=== PATIENT | female | born 1965 | race Caucasian/White ===

== ENCOUNTER 2019-08-20 04:25 | Emergency (ER) | payer OTHER ==
[2019-08-20 04:34] VITALS: BP 112/88; PULSE 83
--- NOTE | 2019-08-20 04:40 | EDM.PDOC ---
ED HPI GENERAL MEDICAL PROBLEM - General Chief Complaint: Back Pain or Injury Stated Complaint: MIDDLE BACK PAIN/SOB Time Seen by Provider: 08/20/19 04:40 - History of Present Illness INITIAL COMMENTS - FREE TEXT/NARRATIVE: 54-year-old female presents emergency room with upper back discomfort and difficulty breathing. This started around 1 or 2:00 yesterday afternoon. She cannot take a deep breath in because it feels like it catches or hurts. She's had what she describes as lower leg swelling where she thought she was retaining water. The pain is somewhat sharp and pleuritic when she attempts to take a deep breath. She has not had pressure with this. She had no prior history of blood clots no family history of blood clots she has no history of coronary artery disease. She is a nonsmoker. Middle Back Pain Score (Numeric/FACES): 8 - Related Data Allergies Allergy/AdvReac Type Severity Reaction Status Date / Time azithromycin [From Zithromax] Allergy Other Verified 08/20/19 04:34 erythromycin base Allergy Other Verified 08/20/19 04:34 gentamicin Allergy Other Verified 08/20/19 04:34 peanut Allergy Other Verified 08/20/19 04:34 Tetracyclines Allergy Other Verified 08/20/19 04:34 Home Meds: Home Meds Aspirin [Ecotrin EC] 81 mg PO DAILY 11/01/16 [History] Cholecalciferol (Vitamin D3) [Vitamin D] 2,000 unit PO DAILY 11/01/16 [History] Escitalopram [Lexapro] 15 mg PO DAILY 11/01/16 [History] Esomeprazole [NexIUM] 40 mg PO DAILY 11/01/16 [History] Melatonin 5 mg PO BEDTIME 11/01/16 [History] Budesonide/Formoterol Fumarate [Symbicort 80-4.5 MCG] 2 inh INH BID 08/20/19 [ History] Magnesium Amino Acid Chelate [Magnesium] 200 mg PO DAILY 08/20/19 [History] Naproxen [Naprosyn] 500 mg PO Q12HR #20 tab 08/20/19 [Rx] Past Medical History HEENT History: Reports: Other (See Below) Other HEENT History: TMJ Respiratory History: Reports: Asthma Gastrointestinal History: Reports: Hiatal Hernia Genitourinary History: Reports: Renal Calculus, UTI, Recurrent, Other (See Below ) Other Genitourinary History: HPV Musculoskeletal History: Reports: Other (See Below) Other Musculoskeletal History: low back surgery Psychiatric History: Reports: Depression Social & Family History - Caffeine Use Caffeine Use: Reports: Soda, Tea ED ROS GENERAL - Review of Systems Review Of Systems: Unable To Obtain HEENT: Reports: No Symptoms Respiratory: Reports: Shortness of Breath. Denies: Cough, Sputum, Hemoptysis Cardiovascular: Denies: No Symptoms, Chest Pain, Blood Pressure Problem, Dyspnea on Exertion, Lightheadedness, Orthopnea, Palpitations, Syncope Endocrine: Reports: No Symptoms GI/Abdominal: Reports: No Symptoms : Reports: No Symptoms Musculoskeletal: Reports: No Symptoms Skin: Reports: No Symptoms Neurological: Reports: No Symptoms ED EXAM, GENERAL - Physical Exam Exam: See Below Exam Limited By: No Limitations General Appearance: Alert, No Apparent Distress Head: Atraumatic, Normocephalic Neck: Normal Inspection, Supple, Non-Tender, Full Range of Motion. No: Lymphadenopathy (L), Lymphadenopathy (R) Respiratory/Chest: No Respiratory Distress, Lungs Clear, Normal Breath Sounds Cardiovascular: Regular Rate, Rhythm, No Edema, No Murmur GI/Abdominal: Normal Bowel Sounds, Soft, Non-Tender Back Exam: Normal Inspection, Other (She has tenderness just to the right side of her vertebrae in the mid thoracic area mild palpation does cause some moderate increase in the discomfort) EKG INTERPRETATION EKG Date: 08/20/19 Rhythm: NSR [place]: Normal P-Wave: Present QRS: Normal ST-T: Normal QT: Normal Comparison: NA - No Prior EKG EKG Interpretation Comments: Normal EKG Course - Vital Signs Last Recorded V/S: Last Vital Signs Temp 36.2 C 08/20/19 04:31 Pulse 83 08/20/19 04:31 Resp 16 08/20/19 04:31 BP 112/88 08/20/19 04:31 Pulse Ox 99 08/20/19 04:31 - Orders/Labs/Meds Orders: Active Orders 24 hr Category Date Time Status EKG Documentation Completion [RC] STAT Care 08/20/19 04:49 Active Chest 2V [CR] Stat Exams 08/20/19 04:49 Ordered Labs: Laboratory Tests 08/20/19 Range/Units 05:16 D-Dimer, Quantitative 0.30 (0.19-0.50) mg/L - Re-Assessments/Exams Free Text/Narrative Re-Assessment/Exam: 08/20/19 05:57 S x-ray is unremarkable EKG is unremarkable and her d-dimer is negative. I discussed this with the patient she would like to be discharged offered to give her a shot of Toradol but she would rather just take orals. We will give her a dose of Naprosyn now and a prescription for Naprosyn. I've advised her that if she is not having improvement with therapy she is to follow-up with her regular doctor on Thursday or Thursday and get this d-dimer rechecked. Departure - Departure Time of Disposition: 05:58 Disposition: Home, Self-Care 01 Clinical Impression: Pleuritic pain - Discharge Information Prescriptions: Naproxen [Naprosyn] 500 mg PO Q12HR #20 tab Referrals: Lisa Saldana MD [Primary Care Provider] - Forms: ED Department Discharge Additional Instructions: Return to the emergency room with any questions problems or worsening symptoms. Follow-up with your regular physician on Thursday or Thursday if not improving. Take the Naprosyn as directed use as needed take with meals. - My Orders Last 24 Hours: My Active Orders 08/20/19 04:49 EKG Documentation Completion [RC] STAT Chest 2V [CR] Stat - Assessment/Plan Last 24 Hours: My Active Orders 08/20/19 04:49 EKG Documentation Completion [RC] STAT Chest 2V [CR] Stat
[2019-08-20] MEDS ORDERED: Naproxen 500 MG Tab PO ONE (05:53)
--- NOTE | 2019-08-20 08:20 | CR ---
Chest: 2 views of the chest were obtained. Comparison: Prior chest x-ray of 11/01/16. Moderate-sized hiatal hernia is noted. Heart size and mediastinum are within normal limits. Lungs are clear with no acute parenchymal change but lungs are hyperinflated. Bony structures show scoliosis within the spine. Impression: 1. Probable emphysematous change. Please correlate if patient is a smoker. 2. Moderate-sized hiatal hernia. 3. Nothing acute is otherwise seen. Diagnostic code #2
== END 2019-08-20 06:15 | disposition home or self-care (01) ==
LOC: JD.ED 04:25
DX: R07.81 Pleurodynia (principal); J45.909 Unspecified asthma, uncomplicated; F32.9 Major depressive disorder, single episode, unspecified; Z88.1 Allergy status to other antibiotic agents; Z91.010 Allergy to peanuts; Z79.82 Long term (current) use of aspirin; Z79.51 Long term (current) use of inhaled steroids; Z79.899 Other long term (current) drug therapy
CPT/HCPCS: 36415; 71046; 85379; 93005; 99283; A9270

== ENCOUNTER 2021-05-23 23:00 | Emergency (ER) | payer OTHER ==
[2021-05-23 23:11] VITALS: BP 133/82; PULSE 59
--- NOTE | 2021-05-23 23:15 | EDM.PDOC ---
ED HPI GENERAL MEDICAL PROBLEM - General Chief Complaint: Neuro Symptoms/Deficits Stated Complaint: DIZZY/UNABLE TO STAND Time Seen by Provider: 05/23/21 23:14 Source of Information: Reports: Patient History Limitations: Reports: No Limitations - History of Present Illness INITIAL COMMENTS - FREE TEXT/NARRATIVE: 56-year-old female presents to the ED with a 3 to 4-day history of vertigo symptoms which have been fairly mild up until this evening. This evening the vertigo became severe to the point of making her have nausea and vomiting and inability to walk. She required 2 person assist to walk. She has had vertigo symptoms off and on for many years. He used to be associated with onset of menses but she believes she has not had a bad vertigo attack for at least 2 years. She has asthma and uses Zyrtec and metered-dose inhaler on a daily basis. She does not feel that her seasonal allergies are any worse than normal with nasal congestion or plugging or popping in her ears. She denies any increased timing, buzzing, ringing in her ears. She has not fallen at home. Onset: Gradual Onset Date: 05/20/21 Duration: Day(s):, Constant (She does not move her head or neck.), Getting Worse Location: Reports: Head (Severe vertigo symptoms) Quality: Reports: Other (Paroxysmal vertigo which is relieved by not moving her head or neck) Severity: Severe (Severe tonight.) Improves with: Reports: Rest (Linear head and neck very still.) Worsens with: Reports: Movement Context: Denies: Activity, Exercise, Lifting, Sick Contact, Trauma, Other Associated Symptoms: Reports: Loss of Appetite, Malaise, Nausea/Vomiting. Denies: No Other Symptoms, Confusion, Chest Pain, Cough, cough w sputum, Diaphoresis, Fever/Chills, Headaches, Rash, Seizure, Shortness of Breath, Syncope, Weakness (Is without vomiting) Treatments MERCHANDISING REPRESENTATIVE: Reports: Other (see below) (None.) - Related Data Allergies Allergy/AdvReac Type Severity Reaction Status Date / Time azithromycin [From Zithromax] Allergy Other Verified 05/23/21 23:11 erythromycin base Allergy Other Verified 05/23/21 23:11 gentamicin Allergy Other Verified 05/23/21 23:11 peanut Allergy Other Verified 05/23/21 23:11 Tetracyclines Allergy Other Verified 05/23/21 23:11 Home Meds: Home Meds Aspirin [Ecotrin EC] 81 mg PO DAILY 11/01/16 [History] Cholecalciferol (Vitamin D3) [Vitamin D] 2,000 unit PO DAILY 11/01/16 [History] Escitalopram [Lexapro] 15 mg PO DAILY 11/01/16 [History] Meclizine [Antivert] 12.5 mg PO Q8H #12 tab 05/24/21 [Rx] Past Medical History HEENT History: Reports: Other (See Below) Other HEENT History: TMJ Respiratory History: Reports: Asthma Gastrointestinal History: Reports: Hiatal Hernia Genitourinary History: Reports: Renal Calculus, UTI, Recurrent, Other (See Below) Other Genitourinary History: HPV Musculoskeletal History: Reports: Other (See Below) Other Musculoskeletal History: low back surgery Psychiatric History: Reports: Depression Endocrine/Metabolic History: Reports: Vitamin D Deficiency Social & Family History - Caffeine Use Caffeine Use: Reports: Soda, Tea - Living Situation & Occupation Living situation: Reports: Single Occupation: Employed ED ROS GENERAL - Review of Systems Review Of Systems: See Below Constitutional: Reports: Malaise, Weakness, Fatigue, Decreased Appetite. Denies: Fever, Chills, Weight Loss HEENT: Reports: Glasses, Vertigo Respiratory: Reports: Shortness of Breath (History of asthma well-controlled) Cardiovascular: Reports: No Symptoms Endocrine: Reports: Other GI/Abdominal: Reports: Nausea (Associated with vertigo symptoms), Vomiting : Reports: No Symptoms (Emesis x1 after supper tonight) Musculoskeletal: Reports: No Symptoms Skin: Reports: No Symptoms Neurological: Reports: Dizziness, Difficulty Walking (Requiring 2 person assist to walk tonight due to vertigo). Denies: Confusion, Headache (Severe vertigo symptoms with movement of the head or neck), Syncope, Weakness Psychiatric: Reports: Anxiety, Depression Hematologic/Lymphatic: Reports: No Symptoms Immunologic: Reports: No Symptoms ED EXAM, NEURO - Physical Exam Exam: See Below Exam Limited By: No Limitations General Appearance: Alert, WD/WN, No Apparent Distress, Other (She tends to hold her head and neck very still on the bed. She is currently at 30 degrees sitting up.) Eye Exam: Bilateral Eye: Normal Inspection, Nystagmus (No sustained nystagmus on lateral gaze bilaterally.), Papilledema (No papilledema), PERRL (No gaze palsy) Ears: Normal TMs Throat/Mouth: Normal Inspection, Normal Lips, Normal Oropharynx, Other Head Exam: Atraumatic (Uvula is in the midline.), Normocephalic Neck: Normal Inspection, Supple, Non-Tender, Full Range of Motion. No: Carotid Bruit, Lymphadenopathy (L), Lymphadenopathy (R) Respiratory/Chest: No Respiratory Distress, Lungs Clear, Normal Breath Sounds, No Accessory Muscle Use Cardiovascular: Normal Peripheral Pulses, Regular Rate, Rhythm, No Edema, No Gallop, No Murmur, No Rub Neurological: Alert, Normal Mood/Affect, Normal Dorsiflexion, CN II-XII Intact, Normal Reflexes, No Motor/Sensory Deficits, Oriented x 3 (Assessed), Other (No pronator drift. Rapid alternating movements are normal. Normal [id number]-[id number] and [id number] evaluations. No sustained clonus). No: Normal Gait, Babinski DTR: 1+: Achilles (R), Achilles (L), 2+: Bicep (R), Bicep (L), Patella (R), Patella (L) Back Exam: Normal Inspection, Full Range of Motion. No: CVA Tenderness (L), CVA Tenderness (R) Extremities: Normal Inspection (Gera anxious), Normal Range of Motion, Non-Tender Psychiatric: Normal Affect, Normal Mood, Anxious Skin Exam: Warm, Dry, Intact, Normal Color, No Rash Course - Vital Signs Last Recorded V/S: Last Vital Signs Temp 36.1 C 05/23/21 23:09 Pulse 59 L 05/23/21 23:09 Resp 18 05/23/21 23:09 BP 133/82 05/23/21 23:09 Pulse Ox 97 05/23/21 23:09 - Orders/Labs/Meds Orders: Active Orders 24 hr Category Date Time Status Head wo Cont [CT] Stat Exams 05/23/21 23:24 Taken Labs: Laboratory Tests 05/23/21 05/23/21 Range/Units 23:59 23:59 WBC 4.62 (3.98-10.04) K/mm3 RBC 4.30 (3.98-5.22) M/mm3 Hgb 12.4 (11.2-15.7) gm/dl Hct 38.4 (34.1-44.9) % MCV 89.3 (79.4-94.8) fl MCH 28.8 (25.6-32.2) pg MCHC 32.3 (32.2-35.5) g/dl RDW Std Deviation 40.4 (36.4-46.3) fL Plt Count 164 L (182-369) K/mm3 MPV 11.3 (9.4-12.3) fl Neut % (Auto) 65.0 (34.0-71.1) % Lymph % (Auto) 27.9 (19.3-51.7) % [place] % (Auto) 5.0 (4.7-12.5) % Eos % (Auto) 1.5 (0.7-5.8) Baso % (Auto) 0.4 (0.1-1.2) % Neut # (Auto) 3.00 (1.56-6.13) K/mm3 Lymph # (Auto) 1.29 (1.18-3.74) K/mm3 [place] # (Auto) 0.23 L (0.24-0.36) K/mm3 Eos # (Auto) 0.07 (0.04-0.36) K/mm3 Baso # (Auto) 0.02 (0.01-0.08) K/mm3 Sodium 142 (136-145) mEq/L Potassium 3.9 (3.5-5.1) mEq/L Chloride 107 (98-107) mEq/L Carbon Dioxide 30 (21-32) mEq/L Anion Gap 8.9 (5-15) BUN 11 (7-18) mg/dL Creatinine 0.9 (0.55-1.02) mg/dL Est Cr Clr Drug Dosing TNP Estimated GFR (MDRD) > 60 (>60) mL/min BUN/Creatinine Ratio 12.2 L (14-18) Glucose 131 H (70-99) mg/dL Calcium 8.9 (8.5-10.1) mg/dL Magnesium 2.0 (1.8-2.4) mg/dL Total Bilirubin 0.2 (0.2-1.0) mg/dL AST 10 L (15-37) U/L ALT 16 (14-59) U/L Alkaline Phosphatase 67 (46-116) U/L C-Reactive Protein <0.2 (<1.0) mg/dL Total Protein 7.0 (6.4-8.2) g/dl Albumin 3.6 (3.4-5.0) g/dl Globulin 3.4 gm/dL Albumin/Globulin Ratio 1.1 (1-2) TSH 3rd Generation 1.811 (0.358-3.74) uIU/mL Meds: Medications Discontinued Medications Generic Name Dose Route Start Last Admin Trade Name Ying PRN Reason Stop Dose Admin Diphenhydramine HCl 12.5 mg 05/23/21 23:24 05/23/21 23:43 Diphenhydramine 50 Mg/Ml Sdv IVPUSH 05/23/21 23:25 12.5 mg ONETIME ONE Administration Dextrose/Lactated Ringer's 1,000 mls @ 500 mls/hr 05/23/21 23:30 05/23/21 23:44 Dextrose 5%-Lactated Ringers IV 500 mls/hr ASDIRECTED TONI Administration Lorazepam 0.5 mg 05/23/21 23:24 05/23/21 23:42 Lorazepam 2 Mg/Ml Sdv IVPUSH 05/23/21 23:25 0.5 mg ONETIME ONE Administration Metoclopramide HCl 7.5 mg 05/23/21 23:23 05/23/21 23:42 Metoclopramide 10 Mg/2 Ml Sdv IVPUSH 05/23/21 23:24 7.5 mg ONETIME ONE Administration - Radiology Interpretation Free Text/Narrative:: 56-year-old female presents to the ED with sudden worsening of her vertigo symptoms that she has been dealing with off and on for the last for 5 days. Tonight symptoms worsen to the point that she had emesis x1 after supper. She states it took to person to help her walk since she was so unsteady with her mobility. Symptoms are gone if she lies perfectly still. I could not identify any sustained nystagmus on lateral gaze on evaluation and neuro exam was completely normal. She does have an associated headache. Plan routine labs including serum magnesium and TSH to be done. CT head will be completed due to the headache. Given Reglan 7.5 mg IV with Benadryl 12.5 mg IV since she is on Escitalopram and could have a dystonic reaction with the Reglan. Also given Ativan 0.5 mg IV to help stabilize labyrinth. - Re-Assessments/Exams Free Text/Narrative Re-Assessment/Exam: 05/24/21 00:45 CT scan of the brain completed without IV contrast reveals normal sulci and convexities as per normal. Lateral ventricles are normal. No intracranial bleeding or mass-effect identified. Visualized paranasal sinuses and mastoid sinuses are clear as well. 05/24/21 00:46 Lab tests reveal a normal white count at 4.62 with 65% neutrophils on the auto differential. Hemoglobin is 12.4 with hematocrit of 38.4. Platelet count is 164,000 low normal. Sodium 142 with a potassium of 3.9. Chloride is 107 with a bicarb of 30. Anion gap is 8.9. BUN is 11 with a creatinine of 0.9 and a GFR greater than 60. Glucose is 131. Calcium is 8.9 ma gnesium is 2.0 liver function is normal. C-reactive protein is less than 0.2. Total protein 7.0 with an albumin fraction of 3.6 TSH is 1.8 normal. 05/24/21 01:00: We did get her up walking in the hallway and she is a little woozy and still has mild vertigo symptoms with markedly improved compared to what it was when she came in. She could walk without help. I am going to discharge her to home on Antivert 12.5 mg every 8 hours for the next 4 days. First tablet will be due at 8:00 this morning. Her daughter is here to drive her home. If she is not better by the end of the weekend advised follow-up with primary care physician to arrange Zeeshan maneuvers at physiotherapy Departure - Departure Time of Disposition: 00:52 Disposition: Home, Self-Care 01 Condition: Fair Clinical Impression: Benign paroxysmal vertigo, unspecified ear Qualifiers: Laterality: unspecified laterality Qualified Code(s): H81.10 - Benign paroxysmal vertigo, unspecified ear - Discharge Information *PRESCRIPTION DRUG MONITORING PROGRAM REVIEWED*: Not Applicable *COPY OF PRESCRIPTION DRUG MONITORING REPORT IN PATIENT MARTHA: Not Applicable Prescriptions: Meclizine [Antivert] 12.5 mg PO Q8H #12 tab Instructions: Vertigo, [id number] Referrals: Samantha Swenson NP [Primary Care Provider] - Forms: ED Department Discharge Additional Instructions: Evaluation in the emergency room this morning in regards to development of gonzales dden worsening of vertigo symptoms last evening. As you indicated you have had milder symptoms of vertigo for the last 4 days. You have experienced this in the past. No obvious associated allergies or upper respiratory tract infection to contribute to vertigo symptoms. Neurological examination was completely normal and I was unable to localize the culprit labyrinth to one side versus the other. I am suspicious is the right side but I cannot prove it clinically. CT scan of the head was performed due to development of associated headache with vertigo and it proved to be completely normal. He received intravenous fluids and medications Reglan 7.5 mg with Benadryl 12.5 mg and Ativan 0.5 mg IV to bring the vertigo symptoms under control. Treatment at home is to be a no salt added diet. Plenty of fluids. Use Antivert or meclizine 12.5 mg every 8 hours for the next 4 days to help control vertigo symptoms. Next tablet would be due around 8:00 this morning. If not markedly improved by ThursdayMay 26 you should be seen by physician again with a view to referral to physical therapy for Zeeshan maneuvers. Sepsis Event Note (ED) - Evaluation Sepsis Screening Result: No Definite Risk - Focused Exam Vital Signs: Vital Signs Temp Pulse Resp BP Pulse Ox 05/23/21 23:09 36.1 C 59 L 18 133/82 97 - My Orders Last 24 Hours: My Active Orders 05/23/21 23:24 Head wo Cont [CT] Stat - Assessment/Plan Last 24 Hours: My Active Orders 05/23/21 23:24 Head wo Cont [CT] Stat
[2021-05-23] MEDS ORDERED: Metoclopramide 10 MG/2 ML SDV IVPUSH ONE (23:23)
[2021-05-23] MEDS ORDERED: LORazepam 2 MG/ML SDV IVPUSH ONE (23:24)
[2021-05-23] MEDS ORDERED: diphenhydrAMINE 50 MG/ML SDV IVPUSH ONE (23:24)
[2021-05-23] MEDS ORDERED: Dextrose 5%-Lactated Ringers 1,000 ML IV SCH (23:30)
--- NOTE | 2021-05-24 07:40 | CT ---
Head CT Technique: Multiple axial sections through the brain were obtained. Intravenous contrast was not utilized. Reconstructed coronal and sagittal images were obtained. Comparison: No prior intracranial imaging is available. Ventricles along with basal cisterns and sulci over the convexities are within normal limits for the patient's age. No abnormal parenchymal densities are seen. No evidence of intracranial hemorrhage is seen. No midline shift or mass-effect is seen. Bone window settings were reviewed. Visualized mastoid sinuses and paranasal sinuses show nothing acute. No acute calvarial abnormality is appreciated. Impression: 1. Nothing acute is seen on noncontrast head CT exam. Diagnostic code #1 I agree with preliminary report from [facility] finalized on 01/22/21, 2:00 AM CDT, code 1
== END 2021-05-24 01:39 | disposition home or self-care (01) ==
LOC: JD.ED 23:00
DX: H81.10 Benign paroxysmal vertigo, unspecified ear (principal); Z91.011 Allergy to milk products; Z88.1 Allergy status to other antibiotic agents; Z79.82 Long term (current) use of aspirin
CPT/HCPCS: 36415; 70450; 80053; 83735; 84443; 85025; 86140; 96374; 96375; 99284; J1200; J2060; J2765; J7121

== ENCOUNTER 2021-09-02 09:27 | Emergency (ER) | payer OTHER ==
[2021-09-02 10:11] VITALS: BP 137/73; PULSE 53
--- NOTE | 2021-09-02 11:26 | EDM.PDOC ---
ED HPI GENERAL MEDICAL PROBLEM - General Chief Complaint: Chest Pain Stated Complaint: POST COVID CHEST PAIN Time Seen by Provider: 09/02/21 09:56 Source of Information: Reports: Patient, RN Notes Reviewed - History of Present Illness INITIAL COMMENTS - FREE TEXT/NARRATIVE: 56 yr old lady had some shoulder and upper back discomfort last evening. Has had continued cough post covid 6 weeks ago. Has also had a lot of sinus pressure and drainage that has not gotten better. No current difficulty breathing other than cough and sinus dinorah. Chest Pain Score (Numeric/FACES): 5 - Related Data Allergies Allergy/AdvReac Type Severity Reaction Status Date / Time azithromycin [From Zithromax] Allergy Other Verified 09/02/21 10:11 erythromycin base Allergy Other Verified 09/02/21 10:11 gentamicin Allergy Other Verified 09/02/21 10:11 peanut Allergy Other Verified 09/02/21 10:11 Tetracyclines Allergy Other Verified 09/02/21 10:11 Home Meds: Home Meds Aspirin [Ecotrin EC] 81 mg PO DAILY 11/01/16 [History] Cholecalciferol (Vitamin D3) [Vitamin D] 2,000 unit PO DAILY 11/01/16 [History] Escitalopram [Lexapro] 15 mg PO DAILY 11/01/16 [History] Meclizine [Antivert] 12.5 mg PO Q8H #12 tab 05/24/21 [Rx] cephALEXin [Cephalexin] 500 mg PO TID #30 capsule 09/02/21 [Rx] Past Medical History HEENT History: Reports: Other (See Below) Other HEENT History: TMJ Respiratory History: Reports: Asthma Gastrointestinal History: Reports: Hiatal Hernia Genitourinary History: Reports: Renal Calculus, UTI, Recurrent, Other (See Below) Other Genitourinary History: HPV Musculoskeletal History: Reports: Other (See Below) Other Musculoskeletal History: low back surgery Psychiatric History: Reports: Depression Endocrine/Metabolic History: Reports: Vitamin D Deficiency Social & Family History - Caffeine Use Caffeine Use: Reports: Soda, Tea - Living Situation & Occupation Living situation: Reports: Single Occupation: Employed ED ROS GENERAL - Review of Systems Review Of Systems: See Below Constitutional: Denies: Fever, Chills HEENT: Reports: Sinus Problem. Denies: Throat Pain Respiratory: Reports: Cough, Sputum (scant). Denies: Shortness of Breath, Whe ezing GI/Abdominal: Denies: Abdominal Pain, Nausea, Vomiting Musculoskeletal: Reports: Shoulder Pain, Back Pain Skin: Reports: No Symptoms Neurological: Reports: No Symptoms ED EXAM, GENERAL - Physical Exam Exam: See Below General Appearance: Alert, No Apparent Distress Neck: Supple Respiratory/Chest: No Respiratory Distress, Lungs Clear, Normal Breath Sounds. No: Rales, Rhonchi, Wheezing Cardiovascular: Regular Rate, Rhythm GI/Abdominal: Non-Tender Extremities: No: Pedal Edema, Leg Pain, Increased Warmth, Redness Neurological: Alert, Oriented, No Motor/Sensory Deficits Skin Exam: Warm, Dry, Normal Color #1 Interpretation EKG Date: 09/02/21 Rhythm: Other (sinus dex) Rate (Beats/Min): 55 [place]: Normal P-Wave: Present QRS: Normal ST-T: Normal Course - Vital Signs Last Recorded V/S: Last Vital Signs Temp 98.5 F 09/02/21 09:56 Pulse 53 L 09/02/21 09:56 Resp 18 09/02/21 09:56 BP 137/73 09/02/21 09:56 Pulse Ox 97 09/02/21 09:56 - Orders/Labs/Meds Orders: Active Orders 24 hr Category Date Time Status Chest 1V Frontal [CR] Stat Exams 09/02/21 10:22 Taken Labs: Laboratory Tests 09/02/21 Range/Units 10:43 Troponin I < 0.017 (0.00-0.056) ng/mL Departure - Departure Time of Disposition: 11:29 Disposition: Home, Self-Care 01 Condition: Fair Clinical Impression: Atypical chest pain Sinusitis Qualifiers: Sinusitis location: unspecified location Chronicity: acute Recurrence: not specified as recurrent Qualified Code(s): J01.90 - Acute sinusitis, unspecified Prescriptions: cephALEXin [Cephalexin] 500 mg PO TID #30 capsule Referrals: Ani Lanza PA-C [Primary Care Provider] - Forms: ED Department Discharge Additional Instructions: Your heart and lungs have checked out well today. Cephalexin 500 mg 3 times daily for 10 days. Prescription has been sent to [facility]. Follow up clinic as planned. Sepsis Event Note (ED) - Evaluation Sepsis Screening Result: No Definite Risk - Focused Exam Vital Signs: Vital Signs Temp Pulse Resp BP Pulse Ox 09/02/21 09:56 98.5 F 53 L 18 137/73 97 - My Orders Last 24 Hours: My Active Orders 09/02/21 10:22 Chest 1V Frontal [CR] Stat - Assessment/Plan Last 24 Hours: My Active Orders 09/02/21 10:22 Chest 1V Frontal [CR] Stat
--- NOTE | 2021-09-02 11:42 | CR ---
Chest: Portable view of the chest was obtained. Comparison: Prior chest x-ray of 08/14/21. Moderately large hiatal hernia is noted. Heart size and mediastinum are within normal limits. Lungs are clear with no acute parenchymal change. Bony structures show nothing acute. Impression: 1. Moderately large hiatal hernia. 2. Nothing acute is seen on portable chest x-ray. Diagnostic code #2
== END 2021-09-02 11:49 | disposition home or self-care (01) ==
LOC: JD.ED 09:27
DX: R07.89 Other chest pain (principal); J01.90 Acute sinusitis, unspecified; Z88.1 Allergy status to other antibiotic agents; Z91.010 Allergy to peanuts; Z79.82 Long term (current) use of aspirin; Z79.899 Other long term (current) drug therapy
CPT/HCPCS: 36415; 71045; 71045-26; 84484; 93010; 99284; 99285-25

== ENCOUNTER 2021-10-15 07:58 | Observation (INO) | payer OTHER ==
[~2021-10-15 07:58] MED LIST: Dexamethasone 4 MG/ML 5 ML MDV ONE; Lactated Ringers 1,000 ML IV SCH; Lidocaine 1% 4 ML ONE; Lidocaine 1%/Sod Bicarbonate in NS 8.4% 1 ML Syringe IDERM PRN; Midazolam 1 MG/ML 2 ML SDV ONE; Propofol 200 MG/20 ML SDV ONE; Rocuronium 50 MG/5 ML Vial ONE; Sodium Chloride 0.9% 10 ML Syringe FLUSH PRN; fentaNYL 250 MCG/5 ML SDV ONE
[2021-10-15] MEDS ORDERED: HYDROmorphone 0.5 MG/0.5 ML Syringe IVPUSH PRN (08:09)
[2021-10-15] MEDS ORDERED: fentaNYL 100 MCG/2 ML SDV IVPUSH PRN (08:09)
[2021-10-15] MEDS ORDERED: Ondansetron 4 MG/2 ML SDV IVPUSH PRN (08:09)
[2021-10-15] MEDS ORDERED: Bupivacaine 0.5% 30 ML SDV ONE (08:13)
--- NOTE | 2021-10-15 08:22 | PCM.PREANE ---
Preanesthetic Assessment - Procedure Proposed Procedure: Avi Fundoplication , upper endoscopy, bronchoscopy - Anesthesia/Transfusion/Family Hx Anesthesia History: Prior Anesthesia Without Reaction Family History of Anesthesia Reaction: No Transfusion History: No Prior Transfusion(s) Intubation History: Unknown - Review of Systems General: No Symptoms Pulmonary: No Symptoms Cardiovascular: No Symptoms Gastrointestinal: Other (GERD treated with medication ) Neurological: Other ("mini stroke" some trouble with speach she reports, was 21 years ago , history of a microdiscectomy lumbar region, "n\\i need to have it done again" radiates pain down right ) - Physical Assessment NPO Status Date: 10/15/21 NPO Status Time: 00:00 Height: 1.98 m Weight: 72.121 kg ASA Class: 3 Mental Status: Alert & Oriented x3 Airway Class: Mallampati = 1 Dentition: Reports: Normal Dentition Thyro-Mental Finger Breadths: 2 Mouth Opening Finger Breadths: 3 ROM/Head Extension: Full Lungs: Clear to Auscultation, Normal Respiratory Effort Cardiovascular: Regular Rate, Regular Rhythm - Allergies Allergies/Adverse Reactions: Allergies Allergy/AdvReac Type Severity Reaction Status Date / Time azithromycin [From Zithromax] Allergy Other Verified 10/14/21 16:28 doxycycline Allergy Rash Verified 10/14/21 16:28 erythromycin base Allergy Other Verified 10/14/21 16:28 gentamicin Allergy Other Verified 10/14/21 16:28 peanut Allergy Other Verified 10/14/21 16:28 Tetracyclines Allergy Other Verified 10/14/21 16:28 - Blood Blood Available: No - Anesthesia Plan Pre-Op Medication Ordered: Other (albuteral neb and instructed her to take her breo inahaler ) - Acknowledgements Anesthesia Type Planned: General Anesthesia Pt an Appropriate Candidate for the Planned Anesthesia: Yes Alternatives and Risks of Anesthesia Discussed w Pt/Guardian: Yes Pt/Guardian Understands and Agrees with Anesthesia Plan: Yes PreAnesthesia Questionnaire HEENT History: Reports: Allergic Rhinitis, Impaired Vision, Other (See Below) Other HEENT History: TMJ Cardiovascular History: Reports: Other (See Below) Other Cardiovascular History: chest pain Respiratory History: Reports: Asthma, Other (See Below) Other Respiratory History: pulmonary nodule Gastrointestinal History: Reports: GERD, Hiatal Hernia, Other (See Below) Other Gastrointestinal History: bloating, IBS, abdominal pain, chronic constipation Genitourinary History: Reports: Renal Calculus, UTI, Recurrent, Other (See Below) Other Genitourinary History: ascus, CINI, LEEP, colposcopy [employer] History: Reports: None Musculoskeletal History: Reports: Back Pain, Chronic, Other (See Below) Other Musculoskeletal History: low back surgery Neurological History: Reports: Vertigo, Other (See Below) Other Neuro History: dizziness, degenerative disc disesase, low back pain Psychiatric History: Reports: Depression, Other (See Below) Other Psychiatric History: irritable Endocrine/Metabolic History: Reports: Vitamin D Deficiency Hematologic History: Reports: Other (See Below) Other Hematologic History: abnormal WBC Immunologic History: Reports: None Oncologic (Cancer) History: Reports: None Dermatologic History: Reports: Other (See Below) Other Dermatologic History: axilla hyperhidrosis, bruising - Infectious Disease History Infectious Disease History: Reports: None - Past Surgical History Head Surgeries/Procedures: Reports: None Cardiovascular Surgical History: Reports: None Respiratory Surgical History: Reports: None GI Surgical History: Reports: None Female Surgical History: Reports: Breast Implant Male Surgical History: Reports: None Endocrine Surgical History: Reports: None Neurological Surgical History: Reports: Discectomy Musculoskeletal Surgical History: Reports: None Oncologic Surgical History: Reports: None Dermatological Surgical History: Reports: None - SUBSTANCE USE Tobacco Use Status *Q: Never Tobacco User Recreational Drug Use History: No - HOME MEDS Home Medications: Home Meds Aspirin [Ecotrin EC] 81 mg PO DAILY 11/01/16 [History] Escitalopram [Lexapro] 15 mg PO DAILY 11/01/16 [History] Albuterol Sulfate [Proair Hfa] 1 - 2 puff INH Q4H PRN 10/14/21 [History] Cholecalciferol (Vitamin D3) [Vitamin D3] 5,000 unit PO DAILY 10/14/21 [History] Fluticasone/Vilanterol [Breo Ellipta 200-25 MCG Inhalation Kit] 1 dose INH DAILY 10/14/21 [History] Melatonin 3 mg PO BEDTIME 10/14/21 [History] Omeprazole Magnesium [Prilosec Otc] 40 mg PO BEDTIME 10/14/21 [History] - CURRENT (IN HOUSE) MEDS Current Meds: Current Medications Fentanyl (Fentanyl 100 Mcg/2 Ml Sdv) 50 mcg IVPUSH Q5M PRN PRN Reason: Pain Stop: 10/15/21 12:00 Hydromorphone HCl (Hydromorphone 0.5 Mg/0.5 Ml Syringe) 0.5 mg IVPUSH Q10M PRN PRN Reason: Pain (severe 7-10) Lactated Ringer's (Ringers, Lactated) 1,000 mls @ 125 mls/hr IV ASDIRECTED TONI Lidocaine/Sodium Bicarbonate (Lidocaine 1%/Sod Bicarbonate In Ns 8.4% 1 Ml Syringe) 0.25 ml IDERM ONETIME PRN PRN Reason: Prior to IV Start Ondansetron HCl (Ondansetron 4 Mg/2 Ml Sdv) 4 mg IVPUSH ONETIME PRN PRN Reason: Nausea/Vomiting Sodium Chloride (Sodium Chloride 0.9% 10 Ml Syringe) 10 ml FLUSH ASDIRECTED PRN PRN Reason: Keep Vein Open Discontinued Medications Dexamethasone (Dexamethasone 4 Mg/Ml 5 Ml Mdv) Confirm Administered Dose 20 mg .ROUTE .STK-MED ONE Stop: 10/15/21 07:33 Fentanyl (Fentanyl 250 Mcg/5 Ml Sdv) Confirm Administered Dose 250 mcg .ROUTE .STK-MED ONE Stop: 10/15/21 07:27 Lidocaine HCl (Xylocaine-Mpf 1%) Confirm Administered Dose 4 mls @ as directed .ROUTE .STK-MED ONE Stop: 10/15/21 07:33 Midazolam HCl (Midazolam 1 Mg/Ml 2 Ml Sdv) Confirm Administered Dose 2 mg .ROUTE .STK-MED ONE Stop: 10/15/21 07:26 Propofol (Propofol 200 Mg/20 Ml Sdv) Confirm Administered Dose 200 mg .ROUTE .STK-MED ONE Stop: 10/15/21 07:26 Rocuronium [place] (Rocuronium 50 Mg/5 Ml Vial) Confirm Administered Dose 50 mg .ROUTE .STK-MED ONE Stop: 10/15/21 07:34
[2021-10-15] MEDS: Albuterol/Ipratropium 3.0-0.5 MG/3 ML Neb Soln NEB ONE ×2 (09:13→15:53)
[2021-10-15] MEDS ORDERED: ceFAZolin 1 GM Vial ONE (10:06)
[2021-10-15] MEDS ORDERED: Rocuronium 50 MG/5 ML Vial ONE ×2 (10:15→11:50)
[2021-10-15] MEDS ORDERED: HYDROmorphone 0.5 MG/0.5 ML Syringe ONE ×3 (10:23→12:19)
[2021-10-15] MEDS ORDERED: Ketamine 500 mg/10 ML MDV ONE (10:23)
[2021-10-15] MEDS ORDERED: Ketorolac 30 MG/ML SDV ONE (10:25)
[2021-10-15] MEDS ORDERED: Ondansetron 4 MG/2 ML SDV ONE (10:25)
[2021-10-15] MEDS ORDERED: Scopolamine 1.5 MG Transdermal Patch TRDERM STA (10:41)
[2021-10-15] MEDS ORDERED: Scopolamine 1.5 MG Transdermal Patch TRDERM ONE (11:00)
[2021-10-15] MEDS ORDERED: Lactated Ringers 0 ML ONE (11:13)
[2021-10-15] MEDS ORDERED: Lactated Ringers 1,000 ML ONE ×2 (11:13)
[2021-10-15] MEDS ORDERED: ePHEDrine 50 MG/ML SDV ONE (12:11)
[2021-10-15] MEDS ORDERED: Morphine 2 MG/ML SYRINGE IVPUSH PRN (13:11)
[2021-10-15] MEDS ORDERED: Ondansetron 4 MG in Sodium Chloride 0.9% 50 ML IV PRN (13:14)
[2021-10-15] MEDS ORDERED: Promethazine 12.5 MG in Sodium Chloride 0.9% 50 ML IV PRN (13:15)
[2021-10-15] MEDS ORDERED: Albuterol 6.7 GM Inhaler INH PRN (13:17)
[2021-10-15] MEDS ORDERED: Ondansetron 4 MG/2 ML SDV IV PRN (13:23)
--- NOTE | 2021-10-15 13:26 | PCM.POSTAN ---
POST ANESTHESIA ASSESSMENT - MENTAL STATUS Mental Status: Other (drowsy ) - VITAL SIGNS Vital Signs: Last Vital Signs 142/73 69HR 9 95% 4 L Temp 36.4 C 10/15/21 07:55 Pulse 77 10/15/21 07:55 Resp 16 10/15/21 07:55 BP 116/74 10/15/21 07:55 Pulse Ox 96 10/15/21 07:55 - RESPIRATORY Respiratory Status: Respiratory Rate WNL, Airway Patent, O2 Saturation Stable, Supplemental Oxygen - CARDIOVASCULAR CV Status: Pulse Rate WNL, Blood Pressure Stable - GASTROINTESTINAL GI Status: No Symptoms - PAIN Pain Score: 0 - POST OP HYDRATION Hydration Status: Adequate & Stable
--- NOTE | 2021-10-15 13:31 | PCM.SN.2 ---
- Free Text/Narrative Note: Date: 10/15/2021 Operation: laparoscopic hiatal hernia repair with intragastric partial fundoplication ("TIF") Indication: symptomatic large hiatal hernia Surgeon: Naldo Lemus MD Findings: large, easily reduced hiatal hernia containing half the stomach. Crural closure completed posteriorly with four interrupted 0 ethibond sutures. Endoscopic fundoplication with EsophX device completed with company representation and guidance present. Detailed Report: The patient was taken to the operating room and placed on the table in supine position. Timeout was performed and general endotracheal anesthesia was initiated. A preprocedure esophagogastroduodenoscopy was performed. A large hiatal hernia was visualized but otherwise there were no remarkable findings. Air was suctioned from the stomach prior to withdrawal of the scope. Next, the patient was positioned for the laparoscopic portion of the case. A Hemphill catheter was placed and the patient was repositioned in low lithotomy. The abdomen was prepped and draped in usual sterile fashion. A Veress needle was placed to the left upper quadrant in order to establish pneumoperitoneum. Once pressure reached 15 mmHg, air was aspirated just superior and left lateral of the umbilicus. A 12 mm bladed trocar was inserted at this site and a 10 mm 30 d egree laparoscope inserted into the abdomen. There was no apparent injury from Veress needle placement. The needle was withdrawn under laparoscopic visualization and additional ports were placed. A 5 mm port was placed at the left lateral abdomen just anterior to the viscera at the level of the subcostal margin for the players assistant. A 12 mm bladed trocar was inserted at the site of Veress needle placement. A 12 mm right lateral port was placed for the liver retractor. The liver retractor was placed to hold the left lobe of the liver anteriorly and expose the hiatus. This was secured in place to the side of the bed. A 5 mm port was placed for the surgeon's left hand at the more medial right upper quadrant. The patient was positioned in reverse Trendelenburg and dissection commenced. The stomach was reduced into the abdomen. Hook monopolar energy was used to incise the phrenoesophageal ligament at the left amanda, anterior to the esophagus. Tissue was divided until skeletal muscle fibers were identified. This plane of dissection was then carried circumferentially from lateral to anterior to medial. As tissue was divided, the hernia sac was pulled down into the abdomen and the mediastinum was exposed. Next, lateral dissection along the proximal greater curve commenced using the [place] LigaSure to divide the omental attachments of the stomach. This dissection was carried up towards the angle of Hiss. Short gastric vessels were divided with the [place] LigaSure. The stomach was reflected off the retroperitoneum from lateral to medial. This met up with the prior plane of dissection. A little bit more work was used to free up the area posterior to the gastroesophageal junction. A grasper was placed posterior to this and a Zain drain was looped around the gastroesophageal junction. This was secured in place with an Endoloop suture and the Zain was used for retraction throughout the remainder of the case. With gentle traction on the stomach inferiorly, dissection was carried up into the mediastinum. The esophagus was mobilized circumferentially well up into the chest so that the distal portion lay within the abdomen without any tension bringing it back up into the chest. Care was taken to avoid injury to the right vagus nerve. With the esophagus completely mobilized, the esophagus and stomach were retracted anteriorly to expose the posterior portion of the crural pillars. 3 pledgeted 0 Ethibond sutures were placed to close the diaphragmatic hiatus, with 1 additional nonpledgeted suture placed anterior to the last 3. The esophagus across the hiatus with a little bit of space anteriorly but the closure. Durable and well positioned. The hernia sac was dissected off the proximal stomach and distal esophagus in the GE junction and fundus were well visualized and lay in proper position. All ports were removed under laparoscopic visualization, and larger ports were closed with 0 Vicryl suture using a laparoscopic suture passer prior to release of pneumoperitoneum. Skin incisions were all closed with running subcuticular Vicryl suture and dressed with Dermabond. A total of 30 cc 0.5% Marcaine was used for local anesthetic throughout the case. Next, attention was turned to the endoscopic portion of the case. The endoscope was passed through the TicketflyX device, and the apparatus was carefully passed through a bite block transorally down to the stomach. With the endoscope and retroflexion, the device was used to create a 270 degree omega valve for an antireflux mechanism. The device was used to place H fasteners be tween the gastric tissue along the greater curvature side of the cardia and the distal esophagus, creating what looked to be a 3 cm intra-abdominal fundoplication. This was done with the assistance and guidance of wraps from the company. After completion of the endoscopic fundoplication, the apparatus was withdrawn, and the endoscope was reinserted into the stomach. The fundoplication appeared to be intact, and a small amount of blood was suctioned after irrigating. Air was suctioned from the stomach and the scope was withdrawn. The patient tolerated the procedure well.
--- NOTE | 2021-10-15 14:00 | PCM48HPAN ---
Post Anesthesia Note - EVALUATION WITHIN 48HRS OF ANESTHETIC Vital Signs in Normal Range: Yes Patient Participated in Evaluation: Yes Respiratory Function Stable: Yes (RN reminding pt to take deep breaths, transfering to NE) Airway Patent: Yes Cardiovascular Function Stable: Yes Hydration Status Stable: Yes Pain Control Satisfactory: Yes Nausea and Vomiting Control Satisfactory: Yes Mental Status Recovered: Yes Vital Signs: Last Vital Signs Temp 36.4 C 10/15/21 13:45 Pulse 67 10/15/21 13:45 Resp 12 10/15/21 13:45 BP 121/70 10/15/21 13:45 Pulse Ox 98 10/15/21 13:45
[2021-10-15] MEDS: Acetaminophen 325 MG Tab PO SCH ×2 (15:58→22:14)
[2021-10-15] MEDS: Simethicone 80 MG Tab.Chew PO PRN ×2 (16:00→20:31)
[2021-10-15] MEDS: Heparin Sodium 5,000 Units/ML Vial SUBCUT SCH ×2 (16:00→22:14)
[2021-10-15] MEDS: Lactated Ringers 1,000 ML IV SCH (17:42)
[2021-10-15] MEDS: oxyCODONE 5 MG Tab PO PRN (22:17)
[2021-10-16] MEDS: oxyCODONE 5 MG Tab PO PRN ×5 (03:12→22:39)
[2021-10-16] MEDS: Heparin Sodium 5,000 Units/ML Vial SUBCUT SCH ×3 (05:44→21:06)
[2021-10-16] MEDS: Acetaminophen 325 MG Tab PO SCH ×3 (05:44→21:05)
[2021-10-16] MEDS: Lactated Ringers 1,000 ML IV SCH (05:56)
[2021-10-16] MEDS ORDERED: Non-Formulary Medication 1 Each (Fluticasone/Vilanterol 1 EACH Each) INH SCH (09:00)
--- NOTE | 2021-10-16 10:08 | PCM.SN.2 ---
- Free Text/Narrative Note: POD 1 s/p laparoscopic hiatal hernia repair with endoscopic partial fundoplication. S: rested overnight, pain better controlled this morning. Still with left shoulder pain and epigastric pain. Tolerating clears, voiding after bauer catheter removal. O: AF-VSS (SpO2 low 90% on room air) ample urine output Awake and alert, appears mildly uncomfortable Breathing normal rate RRR Abdominal incisions appear clean, dry, intact, abdomen appropriately tender Skin warm and well perfused CBC, BMP this morning reviewed, look good A: Overall doing well, but still with some pain control issues. Tolerating clears. P: -utilize prn pain medication for pain control, especially prior to movement -IS, OOB, pulmonary toilet -d/c IV fluids -advance to full liquid diet, start bowel regimen of miralax, colace -heparin SC for DVT ppx -possible discharge to home later today if patient is feeling ready
[2021-10-16] MEDS: Docusate Sodium 100 MG Cap PO SCH (10:45)
[2021-10-16] MEDS: Polyethylene Glycol 3350 Powder 17 GM Packet PO SCH (10:45)
[2021-10-17] MEDS: oxyCODONE 5 MG Tab PO PRN ×2 (02:32→06:33)
[2021-10-17] MEDS: Heparin Sodium 5,000 Units/ML Vial SUBCUT SCH ×2 (05:45→14:43)
[2021-10-17] MEDS: Acetaminophen 325 MG Tab PO SCH ×2 (05:45→14:44)
[2021-10-17] MEDS ORDERED: Phenol 1.4% Oral Spray 177 ML Bottle MUCMEM PRN (08:01)
[2021-10-17] MEDS ORDERED: Benzocaine/Cetylpyridinium/Menthol Lozenge MUCMEM PRN (08:01)
[2021-10-17] MEDS ORDERED: oxyCODONE 5 MG Tab PO PRN (08:03)
[2021-10-17] MEDS: Polyethylene Glycol 3350 Powder 17 GM Packet PO SCH (08:16)
[2021-10-17] MEDS: Ketorolac 15 MG/ML SDV IVPUSH SCH ×2 (08:17→14:44)
[2021-10-17] MEDS: Docusate Sodium 100 MG Cap PO SCH (08:17)
--- NOTE | 2021-10-17 08:18 | PCM.PRNOTE ---
- Free Text/Narrative Note: POD 2 s/p laparoscopic hiatal hernia repair with endoscopic partial fundoplication. S: reports some dysphagia, though keeping clear liquids down. Sore throat. Significant abdominal pain, though patient does not seem to be utilizing prns. No nausea or gas bloat. O: AF-VSS (SpO2 low 90% on room air) Awake and alert, no distress Breathing normal rate RRR Abdominal incisions appear clean, dry, intact, abdomen appropriately tender Skin warm and well perfused A: Overall doing well, but still with some pain control issues. Tolerating clears. P: -utilize prn pain medication for pain control, especially prior to movement. Increase oxycodone dose to 10 mg, q6h prn. add toradol 15 mg q6h. -IS, OOB, pulmonary toilet -full liquid diet, start bowel regimen -heparin SC for DVT ppx -cepacol, chloraseptic for sore throat -restart home meds -anticipate discharge to home this afternoon if pain is manageable and patient feels comfortable.
[2021-10-17] MEDS ORDERED: ESCITALOPRAM 10 MG PO SCH (09:00)
--- NOTE | 2021-10-17 16:01 | PCM.DCSUM1 ---
Discharge Summary - Hospital Course Free Text/Narrative:: Mrs. Cid is a 56-year-old woman who presented for elective laparoscopic hiatal hernia repair with partial fundoplication on October 15. The operation was completed without complication, and fundoplication was done using the endoscopic fundoplication device. Postoperatively, she had some issues with pain control but overall appeared to do well. Postoperative labs were within normal range as well as vitals throughout hospitalization. She was able to tolerate clear liquids and full liquids slowly, although she reported some mild dysphagia. She was able to ambulate, voiding go to the bathroom prior to discharge. Once pain was well enough controlled with an oral regimen, she was deemed fit for discharge the afternoon of postop day 2. Diagnosis: Stroke: No - Discharge Data Discharge Date: 10/17/21 Discharge Disposition: Home, Self-Care 01 Condition: Good - Referral to Home Health Primary Care Physician: PCP None - Patient Summary/Data Operative Procedure(s) Performed: laparoscopic hiatal hernia repair with endoscopic partial fundoplication - Patient Instructions Diet: Full Liquid Diet Activity: As Tolerated, No Lifting Over 10 Pounds Showering/Bathing: May Shower Wound/Incision Care: Keep Operative Site/Wound Site Clean and Dry Notify Provider of: Fever, Increased Pain, Swelling and Redness, Drainage, Nausea and/or Vomiting - Discharge Plan *PRESCRIPTION DRUG MONITORING PROGRAM REVIEWED*: Not Applicable *COPY OF PRESCRIPTION DRUG MONITORING REPORT IN PATIENT MARTHA: Not Applicable Prescriptions/Med Rec: oxyCODONE 5 mg PO Q4H PRN #20 tab PRN Reason: Pain Promethazine [Phenergan] 25 mg PO Q8H PRN #10 tab PRN Reason: Nausea Home Medications: Home Meds Aspirin [Ecotrin EC] 81 mg PO DAILY 11/01/16 [History] Escitalopram [Lexapro] 15 mg PO DAILY 11/01/16 [History] Albuterol Sulfate [Proair Hfa] 1 - 2 puff INH Q4H PRN 10/14/21 [History] Cholecalciferol (Vitamin D3) [Vitamin D3] 5,000 unit PO DAILY 10/14/21 [History] Fluticasone/Vilanterol [Breo Ellipta 200-25 MCG Inhalation Kit] 1 dose INH DAILY 10/14/21 [History] Melatonin 5 mg PO BEDTIME 10/14/21 [History] Omeprazole Magnesium [Prilosec Otc] 40 mg PO BEDTIME 10/14/21 [History] Magnesium Glycinate [Mag Glycinate] 200 mg PO DAILY 10/15/21 [History] Multivitamin [Multivitamins] 1 each PO DAILY 10/15/21 [History] Promethazine [Phenergan] 25 mg PO Q8H PRN #10 tab 10/17/21 [Rx] oxyCODONE 5 mg PO Q4H PRN #20 tab 10/17/21 [Rx] Oxygen Therapy Mode: Room Air Patient Handouts: Hiatal Hernia Referrals: Ani Lanza PA-C [Physician [employer]] - (Follow up for medical needs as needed.) Naldo Lemus MD [Physician] - - Discharge Summary/Plan Comment DC Time >30 min.: No Total # of Minutes for Discharge Time: 20 - Patient Data Vitals - Most Recent: Last Vital Signs Temp 37.1 C 10/17/21 07:44 Pulse 75 10/17/21 08:15 Resp 18 10/17/21 07:44 BP 133/93 H 10/17/21 07:44 Pulse Ox 91 L 10/17/21 08:15 Weight - Most Recent: 73.301 kg I&O - Last 24 hours: Intake & Output 10/17/21 10/17/21 10/17/21 06:59 14:59 22:59 Intake Total 500 355 240 Output Total 1825 Balance -1325 355 240 Med Orders - Current: Current Medications Acetaminophen (Acetaminophen 325 Mg Tab) 975 mg PO Q8H [facility] Last Admin: 10/17/21 14:44 Dose: 975 mg Documented by: Albuterol (Albuterol 6.7 Gm Inhaler) 0 gm INH Q4H PRN PRN Reason: Shortness of Breath Benzocaine/Menthol (Benzocaine/Cetylpyridinium/Menthol Lozenge) 1 lozenge MUCMEM Q2H PRN PRN Reason: Sore Throat Docusate Sodium (Docusate Sodium 100 Mg Cap) 100 mg PO DAILY [facility] Last Admin: 10/17/21 08:17 Dose: 100 mg Documented by: Heparin Sodium (Porcine) (Heparin Sodium 5,000 Units/Ml Vial) 5,000 units SUBCUT Q8H [facility] Last Admin: 10/17/21 14:43 Dose: 5,000 units Documented by: Promethazine HCl 12.5 mg/ (Sodium Chloride) 50.5 mls @ 100 mls/hr IV Q6H PRN PRN Reason: Nausea Ketorolac Tromethamine (Ketorolac 15 Mg/Ml Sdv) 15 mg IVPUSH Q6H [facility] Last Admin: 10/17/21 14:44 Dose: 15 mg Documented by: Morphine Sulfate (Morphine 2 Mg/Ml Syringe) 1 mg IVPUSH Q4H PRN PRN Reason: Pain (severe 7-10) Non-Formulary Medication (Fluticasone/Vilanterol) 1 dose INH DAILY [facility] Escitalopram 10 Mg (Tablet Ptom) 15 mg PO DAILY [facility] Oxycodone HCl (Oxycodone 5 Mg Tab) 10 mg PO Q6H PRN PRN Reason: Pain (moderate 4-6) Phenol/Menthol (Phenol 1.4% Oral [place] 177 Ml Bottle) 1 ml MUCMEM Q2H PRN PRN Reason: Sore Throat Polyethylene Glycol (Polyethylene Glycol 3350 Powder 17 Gm Packet) 17 gm PO DAILY [facility] Last Admin: 10/17/21 08:16 Dose: 17 gm Documented by: Simethicone (Simethicone 80 Mg Tab.Chew) 80 mg PO Q6H PRN PRN Reason: Gas Last Admin: 10/15/21 20:31 Dose: 80 mg Documented by: Discontinued Medications Albuterol/Ipratropium (Albuterol/Ipratropium 3.0-0.5 Mg/3 Ml Neb Soln) 3 ml NEB ONETIME ONE Stop: 10/15/21 09:08 Last Admin: 10/15/21 15:53 Dose: Not Given Documented by: Bupivacaine HCl (Bupivacaine 0.5% 30 Ml Sdv) Confirm Administered Dose 30 ml .ROUTE .STK-MED ONE Stop: 10/15/21 08:14 Last Admin: 10/15/21 10:16 Dose: 30 ml Documented by: Cefazolin Sodium (Cefazolin 1 Gm Vial) Confirm Administered Dose 2 gm .ROUTE .STK-MED ONE Stop: 10/15/21 10:07 Dexamethasone (Dexamethasone 4 Mg/Ml 5 Ml Mdv) Confirm Administered Dose 20 mg .ROUTE .STK-MED ONE Stop: 10/15/21 07:33 Ephedrine Sulfate (Ephedrine 50 Mg/Ml Sdv) Confirm Administered Dose 50 mg .ROUTE .STK-MED ONE Stop: 10/15/21 12:12 Fentanyl (Fentanyl 250 Mcg/5 Ml Sdv) Confirm Administered Dose 250 mcg .ROUTE .STK-MED ONE Stop: 10/15/21 07:27 Fentanyl (Fentanyl 100 Mcg/2 Ml Sdv) 50 mcg IVPUSH Q5M PRN PRN Reason: Pain Stop: 10/15/21 12:00 Glycopyrrolate (Glycopyrrolate 0.2 Mg/Ml 2 Ml Syringe) Confirm Administered Dose 0.8 mg .ROUTE .STK-MED ONE Stop: 10/15/21 10:26 Hydromorphone HCl (Hydromorphone 0.5 Mg/0.5 Ml Syringe) 0.5 mg IVPUSH Q10M PRN PRN Reason: Pain (severe 7-10) Stop: 10/15/21 12:00 Hydromorphone HCl (Hydromorphone 0.5 Mg/0.5 Ml Syringe) Confirm Administered Dose 0.5 mg .ROUTE .STK-MED ONE Stop: 10/15/21 10:24 Hydromorphone HCl (Hydromorphone 0.5 Mg/0.5 Ml Syringe) Confirm Administered Dose 0.5 mg .ROUTE .STK-MED ONE Stop: 10/15/21 10:55 Hydromorphone HCl (Hydromorphone 0.5 Mg/0.5 Ml Syringe) Confirm Administered Dose 0.5 mg .ROUTE .STK-MED ONE Stop: 10/15/21 12:20 Lactated Ringer's (Ringers, Lactated) 1,000 mls @ 125 mls/hr IV ASDIRECTED [facility] Stop: 10/15/21 23:00 Last Admin: 10/15/21 08:15 Dose: 125 mls/hr Documented by: Lidocaine HCl (Xylocaine-Mpf 1%) Confirm Administered Dose 4 mls @ as directed .ROUTE .STK-MED ONE Stop: 10/15/21 07:33 Lactated Ringer's (Ringers, Lactated) Confirm Administered Dose 1,000 mls @ as directed .ROUTE .STK-MED ONE Stop: 10/15/21 11:14 Lactated Ringer's (Ringers, Lactated) Confirm Administered Dose 500 mls @ as directed .ROUTE .STK-MED ONE Stop: 10/15/21 11:14 Lactated Ringer's (Ringers, Lactated) Confirm Administered Dose 1,000 mls @ as directed .ROUTE .STK-MED ONE Stop: 10/15/21 11:14 Lactated Ringer's (Ringers, Lactated) 1,000 mls @ 75 mls/hr IV ASDIRECTED [facility] Last Admin: 10/16/21 05:56 Dose: 75 mls/hr Documented by: Ondansetron HCl 4 mg/ Sodium (Chloride) 52 mls @ 100 mls/hr IV Q6H PRN PRN Reason: Nausea Ketamine HCl (Ketamine 500 Mg/10 Ml Mdv) Confirm Administered Dose 500 mg .ROUTE .STK-MED ONE Stop: 10/15/21 10:24 Ketorolac Tromethamine (Ketorolac 30 Mg/Ml Sdv) Confirm Administered Dose 30 mg .ROUTE .STK-MED ONE Stop: 10/15/21 10:26 Lidocaine/Sodium Bicarbonate (Lidocaine 1%/Sod Bicarbonate In Ns 8.4% 1 Ml Syringe) 0.25 ml IDERM ONETIME PRN PRN Reason: Prior to IV Start Stop: 10/15/21 18:00 Last Admin: 10/15/21 08:15 Dose: 0.25 ml Documented by: Midazolam HCl (Midazolam 1 Mg/Ml 2 Ml Sdv) Confirm Administered Dose 2 mg .ROUTE .STK-MED ONE Stop: 10/15/21 07:26 Miscellaneous Medication (Phenylephrine Hcl In 0.9% Nacl 1 Mg/10 Ml Syringe) Confirm Administered Dose 1 mg .ROUTE .STK-MED ONE Stop: 10/15/21 10:08 Neostigmine Methylsulfate (Neostigmine Methylsulfate 5 Mg/5 Ml Syringe) Confirm Administered Dose 5 mg .ROUTE .STK-MED ONE Stop: 10/15/21 10:26 Ondansetron HCl (Ondansetron 4 Mg/2 Ml Sdv) 4 mg IVPUSH ONETIME PRN PRN Reason: Nausea/Vomiting Stop: 10/15/21 12:00 Ondansetron HCl (Ondansetron 4 Mg/2 Ml Sdv) Confirm Administered Dose 4 mg .ROUTE .STK-MED ONE Stop: 10/15/21 10:26 Ondansetron HCl (Ondansetron 4 Mg/2 Ml Sdv) 4 mg IV Q6H PRN PRN Reason: NAUSEA Oxycodone HCl (Oxycodone 5 Mg Tab) 5 mg PO Q4H PRN PRN Reason: Pain (moderate 4-6) Last Admin: 10/17/21 06:33 Dose: 5 mg Documented by: Propofol (Propofol 200 Mg/20 Ml Sdv) Confirm Administered Dose 200 mg .ROUTE .STK-MED ONE Stop: 10/15/21 07:26 Rocuronium [place] (Rocuronium 50 Mg/5 Ml Vial) Confirm Administered Dose 50 mg .ROUTE .STK-MED ONE Stop: 10/15/21 07:34 Rocuronium [place] (Rocuronium 50 Mg/5 Ml Vial) Confirm Administered Dose 50 mg .ROUTE .STK-MED ONE Stop: 10/15/21 10:16 Rocuronium [place] (Rocuronium 50 Mg/5 Ml Vial) Confirm Administered Dose 50 mg .ROUTE .STK-MED ONE Stop: 10/15/21 11:51 Scopolamine (Scopolamine 1.5 Mg Transdermal Patch) 1.5 mg TRDERM ONETIME ONE Stop: 10/15/21 11:01 Scopolamine (Scopolamine 1.5 Mg Transdermal Patch) 1.5 mg TRDERM STAT STA Stop: 10/15/21 10:42 Last Admin: 10/15/21 10:45 Dose: 1.5 mg Documented by: Sodium Chloride (Sodium Chloride 0.9% 10 Ml Syringe) 10 ml FLUSH ASDIRECTED PRN PRN Reason: Keep Vein Open Stop: 10/15/21 23:00
[2021-10-17 17:25] VITALS: BP 113/80; PULSE 71
--- NOTE | 2021-10-23 11:38 | PCM.PRNOTE ---
- Free Text/Narrative Note: Date: 10/15/2021 Operation: laparoscopic hiatal hernia repair with intragastric partial fundoplication ("TIF") Indication: symptomatic large hiatal hernia Surgeon: Naldo Lemus MD Findings: large, easily reduced hiatal hernia containing half the stomach. Crural closure completed posteriorly with four interrupted 0 ethibond sutures. Endoscopic fundoplication with EsophX device completed with company representation and guidance present. Detailed Report: The patient was taken to the operating room and placed on the table in supine position. Timeout was performed and general endotracheal anesthesia was initiated. A preprocedure esophagogastroduodenoscopy was performed. A large hiatal hernia was visualized but otherwise there were no remarkable findings. Air was suctioned from the stomach prior to withdrawal of the scope. Next, the patient was positioned for the laparoscopic portion of the case. A [place] catheter was placed and the patient was repositioned in low lithotomy. The abdomen was prepped and draped in usual sterile fashion. A Veress needle was placed to the left upper quadrant in order to establish pneumoperitoneum. Once pressure reached 15 mmHg, air was aspirated just superior and left lateral of the umbilicus. A 12 mm bladed trocar was inserted at this site and a 10 mm 30 degree laparoscope inserted into the abdomen. There was no apparent injury from Veress needle placement. The needle was withdrawn under laparoscopic visualization and additional ports were placed. A 5 mm port was placed at the left lateral abdomen just anterior to the viscera at the level of the subcostal margin for the computer lab assistant. A 12 mm bladed trocar was inserted at the site of Veress needle placement. A 12 mm right lateral port was placed for the liver retractor. The liver retractor was placed to hold the left lobe of the liver anteriorly and expose the hiatus. This was secured in place to the side of the bed. A 5 mm port was placed for the surgeon's left hand at the more medial right upper quadrant. The patient was positioned in reverse Trendelenburg and dissection commenced. The stomach was reduced into the abdomen. Hook monopolar energy was used to incise the phrenoesophageal ligament at the left amanda, anterior to the esophagus. Tissue was divided until skeletal muscle fibers were identified. This plane of dissection was then carried circumferentially from lateral to anterior to medial. As tissue was divided, the hernia sac was pulled down into the abdomen and the mediastinum was exposed. Next, lateral dissection along the proximal greater curve commenced using the [place] LigaSure to divide the omental attachments of the stomach. This dissection was carried up towards the angle of [place]. Short gastric vessels were divided with the [place] LigaSure. The stomach was reflected off the retroperitoneum from lateral to medial. This met up with the prior plane of dissection. A little bit more work was used to free up the area posterior to the gastroesophageal junction. A grasper was placed posterior to this and a [place] drain was looped around the gastroesophageal junction. This was secured in place with an Endoloop suture and the [place] was used for retraction throughout the remainder of the case. With gentle traction on the stomach inferiorly, dissection was carried up into the mediastinum. The esophagus was mobilized circumferentially well up into the chest so that the distal portion lay within the abdomen without any tension bringing it back up into the chest. Care was taken to avoid injury to the right vagus nerve. With the esophagus completely mobilized, the esophagus and stomach were retracted anteriorly to expose the posterior portion of the crural pillars. 3 pledgeted 0 Ethibond sutures were placed to close the diaphragmatic hiatus, with 1 additional nonpledgeted suture placed anterior to the last 3. The esophagus across the hiatus with a little bit of space anteriorly but the closure. Durable and well positioned. The hernia sac was dissected off the proximal stomach and distal esophagus in the GE junction and fundus were well visualized and lay in proper position. All ports were removed under laparoscopic visualization, and larger ports were closed with 0 Vicryl suture using a laparoscopic suture passer prior to release of pneumoperitoneum. Skin incisions were all closed with running subcuticular Vicryl suture and dressed with Dermabond. A total of 30 cc 0.5% Marcaine was used for local anesthetic throughout the case. Next, attention was turned to the endoscopic portion of the case. The endoscope was passed through the PortfoliumX device, and the apparatus was carefully passed through a bite block transorally down to the stomach. With the endoscope and retroflexion, the device was used to create a 270 degree omega valve for an antireflux mechanism. The device was used to place H fasteners b etween the gastric tissue along the greater curvature side of the cardia and the distal esophagus, creating what looked to be a 3 cm intra-abdominal fundoplication. This was done with the assistance and guidance of wraps from the company. After completion of the endoscopic fundoplication, the apparatus was withdrawn, and the endoscope was reinserted into the stomach. The fundoplication appeared to be intact, and a small amount of blood was suctioned after irrigating. Air was suctioned from the stomach and the scope was withdrawn. The patient tolerated the procedure well.
== END 2021-10-17 17:48 | disposition home or self-care (01) ==
LOC: JD.MS 07:58 → INTOOBSV 07:58
PROVIDERS: ADMIT Surgery; ATTEND Surgery
DX: K44.9 Diaphragmatic hernia without obstruction or gangrene (principal); J45.909 Unspecified asthma, uncomplicated; F32.A Depression, unspecified; K21.9 Gastro-esophageal reflux disease without esophagitis; Z88.8 Allergy status to other drugs, medicaments and biological substances; Z88.1 Allergy status to other antibiotic agents; Z91.010 Allergy to peanuts; Z79.82 Long term (current) use of aspirin; Z79.899 Other long term (current) drug therapy; Z90.49 Acquired absence of other specified parts of digestive tract; Z98.890 Other specified postprocedural states
CPT/HCPCS: 36415; 43281; 80048; 85025; 96372; 96374; 96376; A9270; G0378; J0690; J1100; J1170; J1644; J1885; J2250; J2370; J2405; J2704; J2710; J3010; J3490; J7120; 00790; J7620-GY

== ENCOUNTER 2021-10-28 20:19 | Emergency (ER) | payer OTHER ==
[2021-10-28 22:47] VITALS: BP 129/88; PULSE 72
[2021-10-29] MEDS ORDERED: Ibuprofen 600 MG Tab PO ONE (00:01)
[2021-10-29] MEDS ORDERED: Cyclobenzaprine 10 MG Tab PO ONE (00:01)
--- NOTE | 2021-10-29 00:13 | EDM.PDOC ---
ED HPI GENERAL MEDICAL PROBLEM - General Chief Complaint: Upper Extremity Injury/Pain Stated Complaint: SHOULDER PAIN AFTER SURGERY Time Seen by Provider: 10/28/21 23:00 Source of Information: Reports: Patient History Limitations: Reports: No Limitations - History of Present Illness INITIAL COMMENTS - FREE TEXT/NARRATIVE: Patient is a 56-year-old female status post hiatal hernia surgery presenting with chief complaint of left shoulder discomfort. Patient reports symptoms have been ongoing for the past 1 week. There does not seem to be any exacerbating or palliative factors. Patient reports a sharp sensation in the lateral aspect of her shoulder. No radiation of symptoms. She states she has a sensation of feeling like she needs to burp. She otherwise denies chest pain, shortness of breath, numbness or tingling in her hands. No recent injuries. Left Shoulder Pain Score (Numeric/FACES): 6 - Related Data Allergies Allergy/AdvReac Type Severity Reaction Status Date / Time azithromycin [From Zithromax] Allergy Other Verified 10/14/21 16:28 doxycycline Allergy Rash Verified 10/14/21 16:28 erythromycin base Allergy Other Verified 10/14/21 16:28 gentamicin Allergy Other Verified 10/14/21 16:28 peanut Allergy Other Verified 10/14/21 16:28 Tetracyclines Allergy Other Verified 10/14/21 16:28 Home Meds: Home Meds Aspirin [Ecotrin EC] 81 mg PO DAILY 11/01/16 [History] Escitalopram [Lexapro] 15 mg PO DAILY 11/01/16 [History] Albuterol Sulfate [Proair Hfa] 1 - 2 puff INH Q4H PRN 10/14/21 [History] Cholecalciferol (Vitamin D3) [Vitamin D3] 5,000 unit PO DAILY 10/14/21 [History] Fluticasone/Vilanterol [Breo Ellipta 200-25 MCG Inhalation Kit] 1 dose INH DAILY 10/14/21 [History] Melatonin 5 mg PO BEDTIME 10/14/21 [History] Magnesium Glycinate [Mag Glycinate] 200 mg PO DAILY 10/15/21 [History] Multivitamin [Multivitamins] 1 each PO DAILY 10/15/21 [History] Promethazine [Phenergan] 25 mg PO Q8H PRN #10 tab 10/17/21 [Rx] Past Medical History HEENT History: Reports: Allergic Rhinitis, Impaired Vision, Other (See Below) Other HEENT History: TMJ Cardiovascular History: Reports: Other (See Below) Other Cardiovascular History: chest pain Respiratory History: Reports: Asthma, Other (See Below) Other Respiratory History: pulmonary nodule Gastrointestinal History: Reports: GERD, Hiatal Hernia, Other (See Below) Other Gastrointestinal History: bloating, IBS, abdominal pain, chronic constipation Genitourinary History: Reports: Renal Calculus, UTI, Recurrent, Other (See Below) Other Genitourinary History: ascus, CINI, LEEP, colposcopy 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: Musculoskeletal History: Reports: Back Pain, Chronic, Other (See Below) Other Musculoskeletal History: low back surgery Neurological History: Reports: TIA, Vertigo, Other (See Below) Other Neuro History: dizziness, degenerative disc disesase, low back pain Psychiatric History: Reports: Anxiety, Depression, Other (See Below) Other Psychiatric History: irritable Endocrine/Metabolic History: Reports: Vitamin D Deficiency Hematologic History: Reports: Other (See Below) Other Hematologic History: abnormal WBC Immunologic History: Reports: None Oncologic (Cancer) History: Reports: None Dermatologic History: Reports: Other (See Below) Other Dermatologic History: axilla hyperhidrosis, bruising - Infectious Disease History Infectious Disease History: Reports: None, Other (See Below) Other Infectious Disease History: covid Sept 13 - Past Surgical History Head Surgeries/Procedures: Reports: None Cardiovascular Surgical History: Reports: None Respiratory Surgical History: Reports: None GI Surgical History: Reports: None Female Surgical History: Reports: Breast Implant Male Surgical History: Reports: None Endocrine Surgical History: Reports: None Neurological Surgical History: Reports: Discectomy Musculoskeletal Surgical History: Reports: None Oncologic Surgical History: Reports: None Dermatological Surgical History: Reports: None Social & Family History - Family History Family Medical History: No Pertinent Family History - Caffeine Use Caffeine Use: Reports: Tea Caffeine Use Comment: Patient reports she drinks a sweetened iced tea daily - Living Situation & Occupation Living situation: Reports: Single Occupation: Employed Review of Systems - Review of Systems Review Of Systems: Comprehensive ROS is negative, except as noted in HPI. ED EXAM, GENERAL - Physical Exam Exam: See Below Free Text/Narrative:: I have reviewed the triage vital signs Const: Well nourished, well developed, appears stated age Eyes: Pupils Equal and reactive to light bilaterally, no conjunctival injection HENT: No signs of trauma or swelling, Neck supple without meningismus CV: Regular Rate Rhythm, Warm, well-perfused extremities RESP: Unlabored respiratory effort GI: soft, non-tender, non-distended, no masses MSK: No gross deformities appreciated. Full range of motion of the left shoulder without pain. No areas of swelling or erythema. Skin: Warm, dry. No rashes Neuro: Alert, surgical assist II-XII grossly intact. Sensation and motor function of extremities grossly intact. Psych: Appropriate mood and affect. #1 Interpretation EKG Date: 10/29/21 Time: 00:11 Rhythm: NSR Rate (Beats/Min): 52 [place]: Normal P-Wave: Present QRS: Normal ST-T: Normal QT: Normal EKG Interpretation Comments: Sinus bradycardia. Normal EKG. Course - Vital Signs Last Recorded V/S: Last Vital Signs Temp 36.8 C 10/28/21 22:46 Pulse 72 10/28/21 22:46 Resp 20 10/28/21 22:46 BP 129/88 10/28/21 22:46 Pulse Ox 95 10/28/21 22:46 - Orders/Labs/Meds Orders: Active Orders 24 hr Category Date Time Status Chest 1V Frontal [CR] Stat Exams 10/28/21 23:44 Taken Labs: Laboratory Tests 10/28/21 10/28/21 Range/Units 23:44 23:57 WBC 6.04 (3.98-10.04) K/mm3 RBC 4.28 (3.98-5.22) M/mm3 Hgb 12.0 (11.2-15.7) gm/dl Hct 38.1 (34.1-44.9) % MCV 89.0 (79.4-94.8) fl MCH 28.0 (25.6-32.2) pg MCHC 31.5 L (32.2-35.5) g/dl RDW Std Deviation 43.0 (36.4-46.3) fL Plt Count 188 (182-369) K/mm3 MPV 11.8 (9.4-12.3) fl Neut % (Auto) 58.5 (34.0-71.1) % Lymph % (Auto) 30.6 (19.3-51.7) % [place] % (Auto) 6.6 (4.7-12.5) % Eos % (Auto) 3.6 (0.7-5.8) Baso % (Auto) 0.5 (0.1-1.2) % Neut # (Auto) 3.53 (1.56-6.13) K/mm3 Lymph # (Auto) 1.85 (1.18-3.74) K/mm3 [place] # (Auto) 0.40 H (0.24-0.36) K/mm3 Eos # (Auto) 0.22 (0.04-0.36) K/mm3 Baso # (Auto) 0.03 (0.01-0.08) K/mm3 Sodium 143 (136-145) mEq/L Potassium 3.9 (3.5-5.1) mEq/L Chloride 106 (98-107) mEq/L Carbon Dioxide 29 (21-32) mEq/L Anion Gap 11.9 (5-15) BUN 25 H (7-18) mg/dL Creatinine 0.9 (0.55-1.02) mg/dL Est Cr Clr Drug Dosing 66.12 mL/min Estimated GFR (MDRD) > 60 (>60) mL/min BUN/Creatinine Ratio 27.8 H (14-18) Glucose 98 (70-99) mg/dL Calcium 8.6 (8.5-10.1) mg/dL Total Bilirubin 0.2 (0.2-1.0) mg/dL AST 8 L (15-37) U/L ALT 18 (14-59) U/L Alkaline Phosphatase 62 (46-116) U/L Troponin I < 0.017 (0.00-0.056) ng/mL Total Protein 6.7 (6.4-8.2) g/dl Albumin 3.4 (3.4-5.0) g/dl Globulin 3.3 gm/dL Albumin/Globulin Ratio 1.0 (1-2) Meds: Medications Discontinued Medications Generic Name Dose Route Start Last Admin Trade Name Freq PRN Reason Stop Dose Admin Cyclobenzaprine HCl 10 mg 10/29/21 00:01 10/29/21 00:19 Cyclobenzaprine 10 Mg Tab PO 10/29/21 00:02 10 mg ONETIME ONE Administration Ibuprofen 600 mg 10/29/21 00:01 10/29/21 00:19 Ibuprofen 600 Mg Tab PO 10/29/21 00:02 600 mg ONETIME ONE Administration Ondansetron HCl 4 mg 10/29/21 01:09 10/29/21 01:15 Ondansetron 4 Mg Tab.Dis PO 10/29/21 01:10 4 mg ONETIME ONE Administration Departure - Departure Time of Disposition: 00:57 Disposition: Home, Self-Care 01 Clinical Impression: Left shoulder pain - Discharge Information Instructions: Shoulder Pain, [id number] Referrals: Ani Lanza PA-C [Primary Care Provider] - Forms: ED Department Discharge Sepsis Event Note (ED) - Focused Exam Vital Signs: Vital Signs Temp Pulse Resp BP Pulse Ox 10/28/21 22:46 36.8 C 72 20 129/88 95 - My Orders Last 24 Hours: My Active Orders 10/28/21 23:44 Chest 1V Frontal [CR] Stat - Assessment/Plan Last 24 Hours: My Active Orders 10/28/21 23:44 Chest 1V Frontal [CR] Stat Assessment:: Patient is 56-year-old female presented to the emergency room with complaint of shoulder pain. There is no evidence of acute injury such as fracture dislocation based on her examination. She demonstrates full range of motion of the shoulder. Consider is a tolerant alternative diagnosis was ACS. Her cardiac work-up in the emergency room is entirely negative. No acute findings requiring further work-up or admission in the emergency room. She will be discharged with outpatient follow-up. Return precautions discussed visual. Patient agrees with plan.
[2021-10-29] MEDS ORDERED: Ondansetron 4 MG Tab.DIS PO ONE (01:09)
--- NOTE | 2021-10-29 09:13 | CR ---
Chest: Portable view of the chest was obtained. Comparison: Prior chest x-ray of 09/02/20. Heart size and mediastinum are felt to be within normal limits for portable technique. Lungs are clear with no acute parenchymal change. Bony structures show nothing acute. Impression: 1. Nothing acute is seen on portable chest x-ray. Diagnostic code #1
== END 2021-10-29 01:16 | disposition home or self-care (01) ==
LOC: JD.ED 20:19
DX: M25.512 Pain in left shoulder (principal); K21.9 Gastro-esophageal reflux disease without esophagitis; Z86.16 Personal history of COVID-19; Z79.899 Other long term (current) drug therapy; Z91.030 Bee allergy status; Z79.82 Long term (current) use of aspirin; Z88.0 Allergy status to penicillin; Z88.1 Allergy status to other antibiotic agents; Z88.8 Allergy status to other drugs, medicaments and biological substances
CPT/HCPCS: 36415; 71045; 80053; 84484; 85025; 93005; 99284; A9270

== ENCOUNTER 2022-10-12 11:48 | Emergency (ER) | payer OTHER ==
[2022-10-12 15:34] VITALS: BP 122/80; PULSE 104
== END 2022-10-12 15:30 | disposition home or self-care (01) ==
LOC: JD.ED 11:48
DX: R05.9 Cough, unspecified (principal); U09.9 Post COVID-19 condition, unspecified; Z88.1 Allergy status to other antibiotic agents; Z91.010 Allergy to peanuts; Z79.82 Long term (current) use of aspirin; Z79.899 Other long term (current) drug therapy
CPT/HCPCS: 36415; 71046; 71046-26; 80053; 83735; 83880; 85025; 86140; 99283

== ENCOUNTER 2022-11-25 09:40 | Day surgery (SDC) | payer OTHER ==
[~2022-11-25 09:40] MED LIST changes: -Dexamethasone 4 MG/ML 5 ML MDV ONE; -Lidocaine 1% 4 ML ONE; -Midazolam 1 MG/ML 2 ML SDV ONE; -Propofol 200 MG/20 ML SDV ONE; -Rocuronium 50 MG/5 ML Vial ONE; +Sodium Chloride 0.9% 10 ML Syringe FLUSH SCH; -fentaNYL 250 MCG/5 ML SDV ONE
[2022-11-25] MEDS ORDERED: Bupivacaine 0.5%/EPINEPHrine 1:200,000 50 ML MDV ONE (11:06)
[2022-11-25] MEDS ORDERED: Lidocaine 1% 30 ML SDV ONE (11:06)
[2022-11-25] MEDS ORDERED: fentaNYL 100 MCG/2 ML SDV ONE (11:42)
[2022-11-25] MEDS ORDERED: Midazolam 1 MG/ML 2 ML SDV ONE (11:42)
[2022-11-25] MEDS ORDERED: Lidocaine 1% 2 ML ONE (11:42)
[2022-11-25] MEDS ORDERED: Propofol 200 MG/20 ML SDV ONE (11:43)
[2022-11-25] MEDS ORDERED: Bacitracin Oint 15 GM Tube ONE (12:11)
[2022-11-25 13:12] VITALS: BP 117/82; PULSE 70
== END 2022-11-25 13:25 | disposition home or self-care (01) ==
LOC: JD.SDS 09:40
PROVIDERS: ATTEND Surgery
DX: K64.4 Residual hemorrhoidal skin tags (principal); J45.909 Unspecified asthma, uncomplicated; F32.A Depression, unspecified; E55.9 Vitamin D deficiency, unspecified; K21.9 Gastro-esophageal reflux disease without esophagitis; K58.9 Irritable bowel syndrome, unspecified; F41.9 Anxiety disorder, unspecified; Z98.890 Other specified postprocedural states; Z79.899 Other long term (current) drug therapy; Z79.82 Long term (current) use of aspirin; Z88.1 Allergy status to other antibiotic agents
CPT/HCPCS: 46083; A9270; J2250; J2704; J3010; J3490; J7120

== ENCOUNTER 2023-08-25 07:32 | Day surgery (SDC) | payer OTHER ==
[~2023-08-25 07:32] MED LIST changes: -Lidocaine 1%/Sod Bicarbonate in NS 8.4% 1 ML Syringe IDERM PRN
[2023-08-25] MEDS ORDERED: Propofol 200 MG/20 ML SDV ONE ×2 (08:04→08:07)
[2023-08-25] MEDS ORDERED: fentaNYL 100 MCG/2 ML SDV ONE (08:07)
[2023-08-25] MEDS ORDERED: Lidocaine 1% 4 ML ONE (08:08)
[2023-08-25 12:04] VITALS: BP 114/76; PULSE 70
== END 2023-08-25 10:05 | disposition home or self-care (01) ==
LOC: JD.SDS 07:32
PROVIDERS: ATTEND Surgery
DX: K21.9 Gastro-esophageal reflux disease without esophagitis (principal); J45.909 Unspecified asthma, uncomplicated; M81.0 Age-related osteoporosis without current pathological fracture; F32.A Depression, unspecified; F41.9 Anxiety disorder, unspecified; M54.9 Dorsalgia, unspecified; G89.29 Other chronic pain; Z88.1 Allergy status to other antibiotic agents; Z88.8 Allergy status to other drugs, medicaments and biological substances; Z79.82 Long term (current) use of aspirin; Z98.890 Other specified postprocedural states; Z79.899 Other long term (current) drug therapy; Z91.010 Allergy to peanuts
CPT/HCPCS: 43239; J2704; J3010; J7120; J3490

== ENCOUNTER 2025-05-06 14:27 | Emergency (ER) | payer OTHER ==
[2025-05-06] MEDS ORDERED: Sodium Chloride 0.9% 10 ML Syringe FLUSH PRN (14:34)
[2025-05-06] MEDS ORDERED: Naloxone 0.4 MG/ML SDV IVPUSH PRN (14:37)
[2025-05-06] MEDS: Ondansetron 4 MG/2 ML SDV IVPUSH ONE (14:44)
[2025-05-06 15:00] LABS: BASOPHILS ABSOLUTE AUTO 0.0 K/mm3 (0.0-0.2); BASOPHILS PERCENT AUTO 0.8 % (0.0-1.0); EOSINOPHILS ABSOLUTE AUTO 0.1 K/mm3 (0.0-0.4); EOSINOPHILS PERCENT AUTO 1.5 % (0.0-6.0); IMMATURE GRAN ABSOLUTE AUTO 0.03 K/mm3 (0.00-0.05); IMMATURE GRAN PERCENT AUTO 0.6 % (0.0-0.4); LYMPHOCYTES ABSOLUTE AUTO 1.4 K/mm3 (1.0-4.8); LYMPHOCYTES PERCENT AUTO 27.5 % (24.0-44.0); MEAN PLATELET VOLUME 11.3 fl (9.4-12.3); MONOCYTES ABSOLUTE AUTO 0.4 K/mm3 (0.0-0.8); MONOCYTES PERCENT AUTO 7.4 % (0.0-8.0); NEUTROPHILS ABSOLUTE AUTO 3.2 K/mm3 (1.8-7.7); NEUTROPHILS PERCENT AUTO 62.2 % (41.0-71.0); NRBC ABSOLUTE 0.00 (0.00-0.02); NRBC PERCENT 0.0 % (0.0-0.2); PLATELET COUNT,PLT 186 K/mm3 (150-400); RED BLOOD CELL COUNT 4.95 M/mm3 (4.10-5.30); WHITE BLOOD CELL COUNT,WBC 5.17 K/mm3 (3.9-11.3)
[2025-05-06 15:09] LABS: INR 1.01
[2025-05-06 15:14] LABS: A/G RATIO 1.1 (1-2); ALANINE AMINOTRANSFERASE,ALT 32.0 U/L (14-59); ASPARTATE AMNIOTRANSFERASE,AST 19.0 U/L (15-37); BILIRUBIN TOTAL 0.3 mg/dL (0.2-1.0); BLOOD UREA NITROGEN,BUN 15.0 mg/dL (7-18); CARBON DIOXIDE,CO2 26.0 mEq/L (21-32); CHLORIDE,CL 104.0 mEq/L (98-107); CREATININE 1.1 mg/dL (0.55-1.02); EST CRCL DRUG DOSING (CG) 53.55 mL/min; ESTIMATED GFR 58.0 mL/min (>60); GLUCOSE RANDOM 108.0 mg/dL (70-99); POTASSIUM,K 4.0 mEq/L (3.5-5.1); PROTEIN TOTAL,TP 7.4 g/dl (6.4-8.2); SODIUM,NA 140.0 mEq/L (136-145)
[2025-05-06 19:54] VITALS: BP 120/76; PULSE 69
== END 2025-05-06 16:45 | disposition home or self-care (01) ==
LOC: JD.ED 14:27
DX: S06.0X0A Concussion without loss of consciousness, initial encounter (principal); K21.9 Gastro-esophageal reflux disease without esophagitis; Z88.1 Allergy status to other antibiotic agents; Z91.011 Allergy to milk products; Z79.51 Long term (current) use of inhaled steroids; Z79.82 Long term (current) use of aspirin; Z79.899 Other long term (current) drug therapy; Z86.16 Personal history of COVID-19; W01.198A Fall on same level from slipping, tripping and stumbling with subsequent striking against other object, initial encounter; Y93.89 Activity, other specified
CPT/HCPCS: 36415; 70450; 72125; 80053; 85025; 85610; 96374; 96375; 99284; J2270; J2405

== ENCOUNTER 2025-05-11 07:36 | Emergency (ER) | payer OTHER ==
[2025-05-11 08:51] VITALS: BP 121/77; PULSE 75
== END 2025-05-11 08:40 | disposition home or self-care (01) ==
LOC: JD.ED 07:36
DX: G24.3 Spasmodic torticollis (principal); Z87.820 Personal history of traumatic brain injury; Z88.8 Allergy status to other drugs, medicaments and biological substances; Z88.1 Allergy status to other antibiotic agents; Z91.010 Allergy to peanuts; Z79.899 Other long term (current) drug therapy; Z79.82 Long term (current) use of aspirin; Z79.51 Long term (current) use of inhaled steroids; Z86.16 Personal history of COVID-19
CPT/HCPCS: 99284; A9270